=== PATIENT | female | born 1930 | race Asian ===

== ENCOUNTER 2017-10-08 23:12 | Inpatient (IN) | payer OTHER, MEDICARE ==
[~2017-10-08] VITALS: Ht 154.9 cm; Wt 62.3 kg
[~2017-10-08 23:12] MED LIST: APAP/CODEINE PO; LOT20 PO; PRO60 PO; TOP50 PO; ZYL100 PO
[2017-10-09 00:08] LABS: BASOPHIL % 0.1 % (0-2); PLATELET COUNT 164 x10^3mcL (130-400)
[2017-10-09 00:10] LABS: RED CELL DISTRIBUTION WIDTH 14.9 % (11.5-14.5)
[2017-10-09 00:11] LABS: CALCIUM 9.3 mg/dL (8.5-10.1); CARBON DIOXIDE 23.1 mmol/L (21-32); CHLORIDE SERUM 104 mmol/L (98-107); CREATININE SERUM 2.1 mg/dL (0.6-1.0); GLUCOSE SERUM 119 mg/dL (74-106); POTASSIUM SERUM 4.6 mmol/L (3.5-5.1); SODIUM SERUM 137 mmol/L (136-145)
[2017-10-09 00:16] LABS: ALBUMIN 3.5 g/dL (3.4-5.0); ALKALINE PHOSPHATASE 91 U/L (46-116); ALT/SGPT 15 U/L (14-59); AST/SGOT 15 U/L (15-37); BILIRUBIN TOTAL 0.1 mg/dL (0.20-1.00); TOTAL PROTEIN, SERUM 7.1 g/dL (6.4-8.2)
[2017-10-09 04:15] VITALS: BP 208/101
[2017-10-09 05:30] VITALS: BP 130/59
[2017-10-09 09:04] LABS: T3 TOTAL 0.94 ng/mL
[2017-10-09 09:14] LABS: CHOLESTEROL/HDL RATIO 3.8; MAGNESIUM 2.2 mg/dL (1.8-2.4); PHOSPHOROUS 3.8 mg/dL (2.5-4.9)
[2017-10-09 09:47] VITALS: BP 146/52
[2017-10-09 10:38] LABS: FREE T4 0.96 ng/dL (0.76-1.46); FREE THYROXINE INDEX 2.7 ug/dL (1.4-4.5)
[2017-10-09 11:36] LABS: AMPHETAMINE QUAL UR NONE DETECTED (NEG <=1000)
[2017-10-09 11:57] LABS: microscopic required? YES; urine erythrocyte 1+ (NEGATIVE)
[2017-10-09 15:07] VITALS: BP 157/63
[2017-10-09 17:32] VITALS: BP 136/46
[2017-10-09 17:38] VITALS: Ht 154.9 cm; Wt 62.3 kg
[2017-10-09 22:08] VITALS: BP 153/56
[2017-10-10 05:54] VITALS: BP 152/62
[2017-10-10 06:53] LABS: CALCIUM 9.5 mg/dL (8.5-10.1); CARBON DIOXIDE 22.4 mmol/L (21-32); CHLORIDE SERUM 110 mmol/L (98-107); CREATININE SERUM 1.9 mg/dL (0.6-1.0); GLUCOSE SERUM 116 mg/dL (74-106); SODIUM SERUM 140 mmol/L (136-145)
[2017-10-10 07:10] LABS: BASOPHIL % 0.2 % (0-2); PLATELET COUNT 173 x10^3mcL (130-400); RED CELL DISTRIBUTION WIDTH 15.3 % (11.5-14.5)
[2017-10-10 09:35] VITALS: BP 141/54
[2017-10-10] MEDS ORDERED: ASPIRIN FOR CHI81 M1 PO (13:14)
[2017-10-10 13:24] VITALS: BP 141/54
== END 2017-10-10 14:44 | disposition home or self-care (01) | DRG 254 ==
LOC: ED 23:12 → MU 10-09 02:41 → DU 10-09 02:41 → MU 10-10 07:49
PROVIDERS: Emergency Medicine; Family Medicine; Internal Medicine Gastroenterology
PROC: 0DBM8ZZ Excision of Descending Colon, Via Natural or Artificial Opening Endoscopic (ICD-10-PCS; principal; 2017-10-09 14:00)
PROC: 0DBM8ZX Excision of Descending Colon, Via Natural or Artificial Opening Endoscopic, Diagnostic (ICD-10-PCS; 2017-10-09 14:00)
DX: K64.8 Other hemorrhoids (principal); N17.0 Acute kidney failure with tubular necrosis; K83.8 Other specified diseases of biliary tract; I12.9 Hypertensive chronic kidney disease with stage 1 through stage 4 chronic kidney disease, or unspecified chronic kidney disease; M10.9 Gout, unspecified; K52.9 Noninfective gastroenteritis and colitis, unspecified; N18.9 Chronic kidney disease, unspecified; D64.9 Anemia, unspecified; K57.91 Diverticulosis of intestine, part unspecified, without perforation or abscess with bleeding; K63.5 Polyp of colon
CPT/HCPCS: 45378; 83880; 84439; C9113; J0360; J1200; J1610; J2250; J2270; J2310; J2405; J2765; J3010; J3490; J7030; Q0092